=== PATIENT | female | born 1945 | race Caucasian/White ===

== ENCOUNTER 2017-05-04 10:45 | Observation (INO) | payer MEDICARE ==
[~2017-05-04] VITALS: Ht 170.2 cm; Wt 61.6 kg
[2017-05-04] VITALS (8 sets, daily range): BP systolic 105–128; BP diastolic 63–74
[~2017-05-04 10:45] MED LIST: ADVIL COLD & SINUS; B-12 TR1000 MCG PO; BACTRIM DS1 TAB PO; BL ADULT ASA81 MG PO; CALCIUM; ESCITALOPRAM OX10 MG OR; FOLIC ACID800 MCG OR; MULTI VITAMN PO; PROTEIN SUPPLEMENT PO; VITAMIN B CO OR; VITAMIN C500 M4 OR; ZOLOFT50 MG PO; [UNRECOGNIZED DRUG - OTHER] PO
[2017-05-04 11:26] LABS: HEMATOCRIT 39.2 % (37.0-47.0); IMMATURE GRANULOCYTES 0.2 % (0.0-1.0); MEAN CELL VOLUME 95.1 fL CALC (80.0-100.0); MEAN CORPUSCULAR HGB 31.6 pG CALC (26.0-32.0); MEAN CORPUSCULAR HGB CONC 33.2 g/L CALC (32.0-36.0); NEUT# 7.2 thou/uL (2.00-7.15); RED BLOOD COUNT 4.12 mill/uL (4.20-5.60); RED CELL DISTRI WIDTH 12.6 % (11.5-15.5)
[2017-05-04 11:43] LABS: ANION GAP 14 (6-22 (CALC)); BUN 15 mg/dL (8-23); BUN/CREATININE RATIO 22 (12-20 (CALC)); CARBON DIOXIDE 25 mmol/l (22-30); CHLORIDE 106 mmol/l (95-108); CREATININE 0.7 mg/dL (0.5-1.0); GFR > 60 ML/MIN (>=60 (CALC)); GFR FOR AFR.AMER. > 60 ML/MIN (>=60 (CALC)); POTASSIUM 4.1 mmol/l (3.5-5.1); SODIUM 140 mmol/l (137-146)
[2017-05-04 16:28] LABS: URINE BILIRUBIN - DIPSTICK NEGATIVE (NEGATIVE); URINE BLOOD DIPSTICK NEGATIVE (NEGATIVE); URINE COLOR YELLOW; URINE GLUCOSE - DIPSTICK NEGATIVE (NEGATIVE); URINE KETONE NEGATIVE (NEGATIVE); URINE LEUK ESTERASE NEGATIVE (NEGATIVE); URINE NITRITE - DIPSTICK NEGATIVE (Negative); URINE PH 7.5 (4.5-8.0); URINE PROTEIN - DIPSTICK NEGATIVE (NEG-TRACE); URINE UROBILINOGEN - DIPSTICK 0.2 E.U./dL (0.2)
[2017-05-04 17:34] LABS: URINE CLARITY CLEAR
== END 2017-05-04 23:45 ==
LOC: ED 10:45 → ED-I 11:28 → ED 12:25 → MS2 12:26 → ICU 22:00
PROVIDERS: Family Medicine; ADMIT Internal Medicine; ATTEND Internal Medicine
DX: R55 Syncope and collapse (principal); R00.1 Bradycardia, unspecified; M54.12 Radiculopathy, cervical region; S00.01XA Abrasion of scalp, initial encounter; W18.39XA Other fall on same level, initial encounter

== ENCOUNTER 2018-03-30 17:17 | Emergency (ER) | payer MEDICARE ==
[~2018-03-30] VITALS: Ht 170.2 cm; Wt 62.0 kg
[2018-03-30 18:28] LABS: HEMATOCRIT 37.7 % (37.0-47.0); HEMOGLOBIN 12.8 g/dl (12.0-16.0); IMMATURE GRANULOCYTES 0.1 % (0.0-5.0); MEAN CELL VOLUME 95.2 fL CALC (80.0-100.0); MEAN CORPUSCULAR HGB 32.3 pG CALC (26.0-32.0); NEUT# 4.85 thou/uL (2.00-7.15); RED BLOOD COUNT 3.96 mill/uL (4.20-5.60); RED CELL DISTRI WIDTH 12.1 % (11.5-15.5)
[2018-03-30] MEDS ORDERED: BL MAGNESIUM250 MG PO (18:28)
[2018-03-30] MEDS ORDERED: [UNRECOGNIZED DRUG - OTHER] PO (18:32)
[2018-03-30 18:50] LABS: ALBUMIN 4.7 g/dL (3.2-5.0); ALKALINE PHOSPHATASE 40 u/l (38-126); BILIRUBIN, TOTAL 0.8 mg/dL (0.0-1.4); BUN 12 mg/dL (8-23); BUN/CREATININE RATIO 21 (12-20 (CALC)); CARBON DIOXIDE 21 mmol/l (22-30); CHLORIDE 97 mmol/l (95-108); CREATININE 0.6 mg/dL (0.5-1.0); GFR > 60 ML/MIN (>=60 (CALC)); GFR FOR AFR.AMER. > 60 ML/MIN (>=60 (CALC)); LIPASE 198 u/l (23-300); POTASSIUM 4.4 mmol/l (3.5-5.1); SGOT/AST 34 u/l (9-36); TOTAL PROTEIN 7.4 g/dL (6.3-8.2)
[2018-03-30 19:12] LABS: ANION GAP 16 (6-22 (CALC)); SODIUM 130 mmol/l (137-146)
[2018-03-30 20:41] LABS: URINE BILIRUBIN - DIPSTICK NEGATIVE (NEGATIVE); URINE BLOOD DIPSTICK NEGATIVE (NEGATIVE); URINE COLOR YELLOW; URINE GLUCOSE - DIPSTICK NEGATIVE (NEGATIVE); URINE KETONE 15 mg/dL (NEGATIVE); URINE LEUK ESTERASE NEGATIVE (NEGATIVE); URINE NITRITE - DIPSTICK NEGATIVE (Negative); URINE PH 6.5 (4.5-8.0); URINE PROTEIN - DIPSTICK NEGATIVE (NEG-TRACE); URINE UROBILINOGEN - DIPSTICK 0.2 E.U./dL (0.2)
[2018-03-30] MEDS ORDERED: CIPROFLOXACN500 MG PO (21:00)
[2018-03-30] MEDS ORDERED: METRONIDAZOL500 MG PO (21:00)
[2018-03-30 21:37] VITALS: BP 125/68
== END 2018-03-30 21:37 | disposition home or self-care (01) ==
LOC: ED 17:17
PROVIDERS: Family Medicine
DX: K57.32 Diverticulitis of large intestine without perforation or abscess without bleeding (principal)
CPT/HCPCS: Q9967

== ENCOUNTER 2018-08-01 05:28 | Observation (INO) | payer MEDICARE ==
[~2018-08-01] VITALS: Ht 170.2 cm; Wt 58.0 kg
[~2018-08-01 05:28] MED LIST changes: +AMOX/K CLAV875 M1 PO; +BL MAGNESIUM250 MG PO; +CIPROFLOXACN500 MG PO; +DYMISTA1 SPR; +METHYLPREDNISOLONE; +METRONIDAZOL500 MG PO; +[UNRECOGNIZED DRUG - OTHER] PO
--- NOTE | 2018-08-01 05:28 | NUR ---
PT. IMMEDIATELY TO TREATMENT ROOM ON ARRIVAL TO ED.
--- NOTE | 2018-08-01 05:42 | NUR ---
DR. ARANGO AT BEDSIDE TO ASSESS.
[2018-08-01] MEDS ORDERED: DONEPEZIL5 MG PO (05:44)
--- NOTE | 2018-08-01 05:51 | NUR ---
A/O F WITH CLEAR BILAT BREATH SOUNDS SAO2 100% ON RM DENIES CP NO DEPENDENT EDEMA,PT SAYS S/S EXACERBATED WITH LAYING FLAT.W/P/D SKIN PINK ORAL MUCOSA
[2018-08-01 06:14] LABS: HEMATOCRIT 40.7 % (37.0-47.0); HEMOGLOBIN 13.5 g/dl (12.0-16.0); IMMATURE GRANULOCYTES 0.4 % (0.0-5.0); MEAN CELL VOLUME 94.7 fL CALC (80.0-100.0); MEAN CORPUSCULAR HGB 31.4 pG CALC (26.0-32.0); MEAN CORPUSCULAR HGB CONC 33.2 g/L CALC (32.0-36.0); NEUT# 5.49 thou/uL (2.00-7.15); RED BLOOD COUNT 4.3 mill/uL (4.20-5.60); RED CELL DISTRI WIDTH 12.3 % (11.5-15.5)
[2018-08-01 06:18] LABS: ALBUMIN 4.2 g/dL (3.2-5.0); BUN 17 mg/dL (8-23); BUN/CREATININE RATIO 29 (12-20 (CALC)); CARBON DIOXIDE 25 mmol/l (22-30); CHLORIDE 102 mmol/l (95-108); CREATININE 0.6 mg/dL (0.5-1.0); GFR > 60 ML/MIN (>=60 (CALC)); GFR FOR AFR.AMER. > 60 ML/MIN (>=60 (CALC)); POTASSIUM 4.1 mmol/l (3.5-5.1); SGOT/AST 39 u/l (9-36); TOTAL PROTEIN 7.2 g/dL (6.3-8.2)
[2018-08-01 06:30] LABS: MYOGLOBIN 26 ng/mL (0 - 62)
[2018-08-01 06:32] LABS: ALKALINE PHOSPHATASE 61 u/l (38-126); ANION GAP 14 (6-22 (CALC)); BILIRUBIN, TOTAL 0.4 mg/dL (0.0-1.4); SODIUM 137 mmol/l (137-146)
[2018-08-01 06:37] LABS: D-DIMER 0.82 mg/L (0.19-0.60)
[2018-08-01 06:38] LABS: ACT PARTIAL THROMBO TIME 24.3 SECONDS (20.0-32.5); PROTHROMBIN TIME 10.2 SECONDS (9.0-12.5)
--- NOTE | 2018-08-01 06:58 | NUR ---
PT REPORT TO NURSE NIKA
--- NOTE | 2018-08-01 07:00 | NUR ---
REPORT RECEIVED FROM AG. RECEIVED PT SITTING IN FIG FOWLERS. EYES CLOSED. RESP EASY. PT AWAKENS EASILY TO VERBAL STIMULI. ASSESMENT COMPLETE. JULIAN BREATH SOUNDS CLEAR THROUGHOUT. RESP EASY. PT STATES SHORTNESS OF BREATH HAS RESOLVED, DENIES ANY PAIN. REPORTS CYST REMOVED FROM BACK LAST WEEK IS TENDER. B/P 87 SYSTOLIC, PT STATES LOW B/P IS HER NORM. NO SIGNS OF DISTRESS. 99% ON ROOM AIR.
--- NOTE | 2018-08-01 07:45 | NUR ---
PT RESTING COMFORATABLY. FAMILY AT BEDSIDE. DENIES ANY NEEDS OR COMPLAINTS. DAUGHTER STATES PATIENT NEEDS A BIT OF WHAT WE GAVE HER HERE TO HAVE AT HOME. SMALLER B/P CUFF APPLIED DUE TO PTS ARM SIZE. SYSTOLIC B/P 100. 100% ON ROOM AIR.
--- NOTE | 2018-08-01 08:24 | NUR ---
DISCUSSED PLAN FOR ADMISSION WITH PATIENT, PT STATES SHE IS JUST GLAD TO BE ABLE TO GET SOME SLEEP. REFUSED BREAKFAST AT THIS TIME.
--- NOTE | 2018-08-01 08:49 | NUR ---
REPORT GIVEN TO LAMONT OSULLIVAN.
--- NOTE | 2018-08-01 09:00 | NUR ---
PT TRANSPORTED TO [facility] VIA STRETCHER WITH TELE IN PLACE. PT AMBULATED FROM STRETCHER TO SCALE TO BED WITH UNSTEADY GAIR. SON AT BEDSIDE. NURSE AND CHIROPRACTOR SOLE PRACTITIONER AT BEDSIDE TO RECEIVED PT. ALL BELONINGS SENT WITH PATIENT.
--- NOTE | 2018-08-01 09:00 | NUR ---
PT ARRIVED TO MED/SURG ROOM 268 VIA STRETCHER IN STABLE CONDITION ACCOMPANIED BY MICHELE,CLIFTON AND SON;PT AMBULATED WITH A WEAK GAIT AND 1 PERSON ASSIST TO STANDING SCALE AND BEDSIDE;WT AND VS OBTAINED BY TYLOR PERALTA;PT A&O X3, DROWSY;ORIENTED PT TO ROOM AND CALL LIGHT SYSTEM;PT REPORTS SOB AND CHEST PAIN MAT GAUGER BUT DENIES ANY PAIN AT THIS TIME,PAIN SCALE AND REPORTING EDUCATED;ASSESSMENT COMPLETED;RESPIRATIONS EVEN AND UNLABORED ON RA,CLEAR LUNG SOUNDS;ABDOMEN SOFT ON PALPATION AND ACTIVE IN ALL 4 QUADRANTS,LAST BM 07/31/18;STRONG PEDAL PULSES;SKIN INTACT, CYSTS REMOVED FROM LOWER BACK LAST WEEK;#20G TO RAC FLUSHED AND PATENT,SITE APPEARS HEALTHY;TELE MONITORING IN PLACE;PT DENIES ANY ADDITIONAL NEEDS AND IS ENCOURAGED TO CALL FOR ASSISTANCE IF NEEDED;FALL PRECAUTIONS IN PLACE WITH BED IN THE LOWEST POSITION AND CALL LIGHT IN REACH;WILL CONTINUE TO MONITOR
[2018-08-01 09:35] VITALS: BP 96/52
--- NOTE | 2018-08-01 10:50 | NUR ---
AT BEDSIDE DISCUSSING POC WITH PT AND SPOUSE.
--- NOTE | 2018-08-01 11:05 | NUR ---
PT RESTING IN SUPINE POSITION;RESPIRATIONS EVEN AND UNLABORED ON RA;PT DENIES ANY CURRENT CP OR SOB;TELE MONITORING IN PLACE;IV SITE TO LAC PATENT;PT DENIES ANY ADDITIONAL NEEDS AT THIS TIME AND IS ENCOURAGED TO CALL FOR ASSISTANCE IF NEEDED;FALL PRECAUTIONS IN PLACE WITH BED ALARM ON FOR SAFETY;CALL LIGHT IN REACH;WILL CONTINUE TO MONITOR
[2018-08-01] MEDS ORDERED: PROTONIX40 M2 PO (12:05)
--- NOTE | 2018-08-01 14:55 | NUR ---
ALL DISCHARGE INSTRUCTIONS PROVIDED AT THIS TIME,PT INSTRUCTED TO PUBLIC RELATIONS PROFESSIONAL RX FOR PROTONIX FROM PHARMACY;IV SITE REMOVED WITH CATHETER INTACT;PT DENIES ANY ADDITIONAL NEEDS AT THIS TIME;WHEELCHAIR TO PROVIDED FOR D/C HOME.
--- NOTE | 2018-08-01 15:10 | NUR ---
Discharge instructions given. Patient verbalizes understanding of same. Discharged in stable condition via Wheelchair to Home with spouse. All belongings sent with pt. Pt discharged via wheelchair in stable condition accompanied by spouse and volunteer.
== END 2018-08-01 15:10 | disposition home or self-care (01) ==
LOC: ED 05:28 → ED-I 07:56 → ED 08:17 → MS2 08:18
PROVIDERS: Family Medicine; ADMIT Internal Medicine Nephrology; ATTEND Internal Medicine Nephrology
DX: R07.89 Other chest pain (principal); F41.8 Other specified anxiety disorders; F03.90 Unspecified dementia, unspecified severity, without behavioral disturbance, psychotic disturbance, mood disturbance, and anxiety; M54.12 Radiculopathy, cervical region; Z95.0 Presence of cardiac pacemaker; R06.02 Shortness of breath
CPT/HCPCS: J2060

== ENCOUNTER 2018-08-20 17:13 | Observation (INO) | payer MEDICARE ==
[~2018-08-20] VITALS: Ht 170.2 cm; Wt 63.6 kg
[~2018-08-20 17:13] MED LIST changes: +DONEPEZIL5 MG PO; +PROTONIX40 M2 PO
--- NOTE | 2018-08-20 17:21 | NUR ---
PATIENT TO ROOM VIA WHEELCHAIR.
[2018-08-20 18:24] LABS: HEMATOCRIT 37.4 % (37.0-47.0); HEMOGLOBIN 12.3 g/dl (12.0-16.0); IMMATURE GRANULOCYTES 0.2 % (0.0-5.0); MEAN CELL VOLUME 93.3 fL CALC (80.0-100.0); MEAN CORPUSCULAR HGB 30.7 pG CALC (26.0-32.0); MEAN CORPUSCULAR HGB CONC 32.9 g/L CALC (32.0-36.0); NEUT# 3.39 thou/uL (2.00-7.15); RED BLOOD COUNT 4.01 mill/uL (4.20-5.60); RED CELL DISTRI WIDTH 12.4 % (11.5-15.5)
[2018-08-20 18:36] LABS: ANION GAP 12 (6-22 (CALC)); BUN 20 mg/dL (8-23); BUN/CREATININE RATIO 34 (12-20 (CALC)); CARBON DIOXIDE 25 mmol/l (22-30); CHLORIDE 103 mmol/l (95-108); CREATININE 0.6 mg/dL (0.5-1.0); GFR > 60 ML/MIN (>=60 (CALC)); GFR FOR AFR.AMER. > 60 ML/MIN (>=60 (CALC)); POTASSIUM 4.4 mmol/l (3.5-5.1); SODIUM 136 mmol/l (137-146)
--- NOTE | 2018-08-20 19:07 | NUR ---
[employer] PACEMAKER INTERROGATION COMPLETED. SPOKE TO LOLIS, REPORT EPISODE OF SVT LASTING LESS THAN ONE MIN ON 07/29/18. THIS IS THE MOST CURRENT ACTIVITY. FAX RECEIVED FROM [facility] [employer].
--- NOTE | 2018-08-20 19:08 | NUR ---
IN ROOM INTRODUCED SELF TO PT. NO C/O AT THIS TIME.
[2018-08-20 19:49] LABS: MYOGLOBIN 31 ng/mL (0 - 62)
--- NOTE | 2018-08-20 20:13 | NUR ---
AMBULATING TO BR WITH ASSIST GAIT SLOW AND STEADY.
--- NOTE | 2018-08-20 20:28 | NUR ---
MD IN ROOM TO DISCUSS CLINICAL FINDINGS WITHN PT. VERBALIZED UNDERSTANDING.
--- NOTE | 2018-08-20 21:01 | NUR ---
Admission Note Report Given to: ALAN MIGUEL Transported by: Wheelchair X Stretcher Transported with: X Nurse Transporter X Patent IV O2 X Air Export Coordinator
--- NOTE | 2018-08-20 21:14 | NUR ---
PT ARRIVED TO [facility] VIA STRETCHER ACCOMPANIED BY ER NURSE,, AND SON. PT ALERT AND ORIENTED X3, AMBULATORY. ORIENTED PT TO ROOM AND CALL LIGHT, DISCUSSED POC. IVF INFUSING TO RAC, ADMISSION ASSESSMENT COMPLETED. CALL LIGHT IN REACH,CONTINUE TO MONITOR.
[2018-08-20 21:23] VITALS: BP 134/85
--- NOTE | 2018-08-21 00:15 | NUR ---
PT RESTING IN BED, NO SIGNS OF DISTRESS NOTED, RESP EVEN AND UNLABORED. DISCUSSED IVF, PT AGREES. CALL LIGHT IN REACH,CONTINUE TO MONITOR.
[2018-08-21 04:20] VITALS: BP 106/67
--- NOTE | 2018-08-21 04:20 | NUR ---
PT RESTING IN BED, DISCUSSED ORTHOSTATIC BP, ORTHOSTATIC BP'S OBTAINED, PT TOLERATED WELL. SEE CHART FOR DOCUMENTATIONS. PT VOICES NO NEEDS OR COMPLAINTS AT THIS TIME. CALL LIGHT IN REACH,CONTINUE TO MONITOR.
[2018-08-21 04:25] VITALS: BP 96/62
[2018-08-21 04:30] VITALS: BP 99/62
--- NOTE | 2018-08-21 07:00 | NUR ---
SHIFT CHANGE REPORT, PT AWAKE ALERT AND ORIENTED RESTING IN BED, DENIES DISCOMFORT,REPORTED HER INCIDENCE OF GONG TO BR THEN WINDING UP IN FLOOR BUT DIDNT KNOW EXACTLY WHAT HAPPENED. TELE MONITOR IN PLACE, IVF INFUSING, CALL TIAN IN REACH.
[2018-08-21 07:46] VITALS: BP 110/62
[2018-08-21 12:00] VITALS: BP 114/71
--- NOTE | 2018-08-21 12:59 | NUR ---
DR ROBLES ROUNDED AND DISCUSSED PLAN OF CARE TO D/C HOME AND FOLLOW UP INSTRUCTED, SPOUSE AT BEDSIDE.
--- NOTE | 2018-08-21 15:06 | NUR ---
Discharge instructions given. Patient verbalizes understanding of same. Discharged in good condition via Wheelchair to Home with spouse. All belongings sent with pt.
== END 2018-08-21 14:54 | disposition home or self-care (01) ==
LOC: ED 17:13 → ED-I 20:22 → ED 20:34 → MS2 20:35
PROVIDERS: Family Medicine; ADMIT Internal Medicine; ATTEND Internal Medicine
DX: R55 Syncope and collapse (principal); I10 Essential (primary) hypertension; F03.90 Unspecified dementia, unspecified severity, without behavioral disturbance, psychotic disturbance, mood disturbance, and anxiety; K21.9 Gastro-esophageal reflux disease without esophagitis; Z95.0 Presence of cardiac pacemaker